=== PATIENT | male | born 1970 | race Caucasian/White ===

== ENCOUNTER 2018-10-13 18:33 | Inpatient (IN) | payer BC, OTHER ==
[~2018-10-13] VITALS: Ht 170.2 cm; Wt 81.6 kg
[~2018-10-13 18:33] MED LIST: ACET-2605 PO; AMLO5TAB9 PO; CHOL100062 PO; CLON0.1T PO; EMTR1TAB6 PO; FERR325T24 PO; FOLI1TAB16 PO; IBUP-1957 PO; LISI10TA5 PO; MULT-465 PO; OMEP40CA37 PO; SUCR1ORA4 PO; THIA100T74 PO; TRAZ-214 PO
--- NOTE | 2018-10-13 19:15 | NUR ---
Pre-Admission Assessment Pt is 48 year old male seen in [facility] intake. Pt is seen sitting in chair. Pt reports feeling anxious and restless, skin is noted to be flushed/clammy. Pt is cooperative, alert/oriented x4 and responds to questions appropriately. However, pt appears to be emotional when responding to pre-assessment questions. Pt begins to cry when reporting why he presents to [facility]. Pt reports he presents to [facility] due to ETOH withdrawal. He stated he was at [facility] around 08/2018, discharged to [facility] which he stayed for 2 weeks then relapsed as soon as he left. Vital signs taken, rules of the unit explained such as vital signs Q4H, wasting of controlled substances, kitchen access, and smoking patio privileges. Will continue with admission process upon arrival on unit.
[2018-10-13] MEDS ORDERED: diphenhydrAMINE 50 MG CAPSULE PO PRN (19:45)
[2018-10-13] MEDS ORDERED: LOPERAMIDE HCL 2 MG CAPSULE PO PRN ×2 (19:45)
[2018-10-13] MEDS ORDERED: HYDROXYZINE PAMOATE 25 MG CAPSULE PO PRN (19:45)
[2018-10-13] MEDS ORDERED: ONDANSETRON ODT 4 MG TAB.RAPDIS SL PRN (19:45)
[2018-10-13] MEDS ORDERED: THIAMINE HCL 200 MG/2 ML VIAL IM ONE (19:45)
[2018-10-13] MEDS ORDERED: MAGNESIUM HYDROXIDE 30 ML LIQUID UDC PO PRN (19:45)
[2018-10-13] MEDS ORDERED: CLONIDINE HCL 0.1 MG TABLET PO PRN (19:45)
[2018-10-13] MEDS ORDERED: LORAZEPAM 1 MG TABLET PO PRN ×2 (19:45)
[2018-10-13] MEDS ORDERED: ONDANSETRON 4 MG/2 ML VIAL IM PRN (19:45)
[2018-10-13] MEDS ORDERED: SRC ALCOHOL WITHDRAWAL ADMITTING PROTOCOL XX PRN (19:45)
[2018-10-13] MEDS ORDERED: MIRALAX 17 GM POWD.PACK PO PRN (19:45)
[2018-10-13] MEDS ORDERED: LORAZEPAM 2 MG/1 ML VIAL IM PRN (19:45)
[2018-10-13] MEDS ORDERED: IBUPROFEN 600 MG TABLET PO PRN (19:45)
[2018-10-13] MEDS ORDERED: MAG HYDROX/AL HYDROX/SIMETH 30 ML LIQUID UDC PO PRN (19:45)
[2018-10-13 20:00] VITALS: BP 125/81
--- NOTE | 2018-10-13 20:00 | NUR ---
JAIWA deferred pt is intoxicated at this time, GREG deferred
[2018-10-13] MEDS ORDERED: VARE1TAB21 PO (20:18)
[2018-10-13] MEDS: ACETAMINOPHEN 325 MG TABLET PO PRN (20:38)
--- NOTE | 2018-10-13 20:38 | NUR ---
PRN Tylenol Pt c/o right rib pain 07/12. Medication given per order. Will monitor effect.
--- NOTE | 2018-10-13 21:00 | NUR ---
Admission Note Admitting a 48 year old male to [facility] for medically supervised withdrawal from ETOH. Pt arrived to unit at 1927 escorted by a male SENIOR ACCOUNT CLERK. Pt is awake, oriented, and intoxicated. CIWA deferred. Avoiding eye contact, withdrawn and guarded. Pt ambulates with steady gait. Pt guarding ribs on right side r/t recent fall. Pt is cooperative and compliant. Skin and cavity check completed. Pt oriented to unit, staff, and equipment which he verbalizes understanding. Given food and fluids. VSS BP 138/73, HR 99, RR 16, T 98.6, O2 Sat 97% RA. Pt having difficulty providing complete and consistent history. Pt is easily distracted and emotional upon questioning. Substance Use History: 1. ETOH (wine) Pt first started drinking at the age of 18, currently drinking 3750 ml-4500 ml daily for the past 2 months, Last drink was 3000 ml-3750 ml 10/13/18. 2. Cocaine -Pt first started using via insufflation at the age of 20, Pt states, " I rarely use it, maybe a few times a year", Last use was 9-10 weeks ago.. Withdrawal: Pt states, "I get anxious, sweaty, shaky, emotional, and I cant sleep Consequences of substance abuse: Pt denies history of seizure, withdrawal induced delirium, withdrawal induced cardiac complications, nor overdose. Pt states, now I blackout all the time. Even if I only have a couple of drinks. I need to learn how to drink. Since I had my surgery I have had a problem drinking, but I dont have a drinking problem, Does that make sense to you? I need to learn how my body handles alcohol so I dont have to keep coming here. Pt also stated, no one knows I am here. Only a couple people know I had surgery. I would rather people think I have a drinking problem than tell them i had surgery. Medical/Psychiatric Condition: PCP is Dr. Hickman History of Hypertension, GERD, and Bariatric surgery in 2016 Pt denies history of SI/SA or 5150. He denies any Psychiatric diagnosis. He does see a therapist at Dr. Sofia office. Pt stated, I dont feel comfortable there, I feel like he is coming on to me. Treatment History: Pt states, "I have been to about 5 treatment places in the past. The ones in [place] and [place] were dirty so I left right away, the one in [place] was being shut down when I got there, and I was here ([facility]) 08/20. I did go to outpatient at [facility] Motivation: When asked why he uses pt states, because it is my social life, Everything is centered around alcohol. When asked why does he want to get sober he states, honestly, I don't know. I don't have a drinking problem. Since my surgery I can't drink anymore. I blackout and pass out on only a couple drinks now. I need to learn how my body can take alcohol so I don't have to come here anymore. I have a problem with the word sober. I really dont think I have a drinking problem. When asked about his support he states, no one knows I am here. Only a couple people know I had surgery. I would rather people think I have a drinking problem than tell them I had surgery. When asked about consequences pt states, I haven't had any consequences except now I blackout and I keep ending up here. I have never really tried to stay sober because everybody drinks and everything I do is centered around alcohol. I just need to figure out the right way Pt made aware of therapeutic and treatment plan. Pt verbalizes understanding and agrees to comply. Pt in room resting. Bed low, side rails up x 2, and call griffith in reach. Will continue to monitor.
[2018-10-13 21:03] LABS: BASOPHILS % (AUTO) 0.6 % (0.0-2.0); EOSINOPHILS # (AUTO) 0.1 K/uL (0.0-0.7); EOSINOPHILS % (AUTO) 1.1 % (0.0-7.0); HEMATOCRIT 43.2 % (36.7-47.1); HEMOGLOBIN 15.3 g/dL (12.5-16.3); LYMPHOCYTES # (AUTO) 3.2 K/uL (20.0-40.0); MEAN CORPUSCULAR HEMOGLOBIN 34.7 uug (23.8-33.4); MEAN CORPUSCULAR HGB CONC 35 g/dL (32.5-36.3); MEAN CORPUSCULAR VOLUME 98.3 fL (73.0-96.2); MONOCYTES # (AUTO) 0.3 K/uL (2.0-10.0); MONOCYTES % (AUTO) 3.5 % (0.0-11.0); NEUTROPHILS # (AUTO) 3.6 K/uL (1.8-8.9); NEUTROPHILS % (AUTO) 49.8 % (38.5-71.5); PLATELET COUNT (AUTO) 243 K/uL (152-348); WHITE BLOOD COUNT (AUTO) 7.2 K/uL (3.6-10.2)
[2018-10-13 21:31] LABS: BILIRUBIN,TOTAL 0.5 mg/dL (0.2-1.0); CREATININE 0.9 mg/dL (0.6-1.3); MAGNESIUM 2.4 mg/dL (1.8-2.4); TOTAL PROTEIN, SERUM 7.6 g/dL (6.4-8.2)
--- NOTE | 2018-10-13 21:38 | NUR ---
Reassess PRN Tylenol Effective per pt. Pain 5/10 at this time. Pt states, It hurts when I take a deep breath or move. Requested to go smoke at this time. Encouraged to not smoke. Will continue to monitor.
[2018-10-13 22:09] LABS: THYROID STIMULATING HORMONE 0.46 mIU/mL (0.358-3.740)
[2018-10-13 22:11] LABS: *AMPHETAMINE, URINE NEGATIVE (NEGATIVE); *BARBITURATE, URINE NEGATIVE (NEGATIVE); *CANNABINOID, URINE NEGATIVE (NEGATIVE); *COCCAINE, URINE NEGATIVE (NEGATIVE); *OPIATE, URINE NEGATIVE (NEGATIVE); *PHENCYCLIDINE SCREEN,URINE NEGATIVE (NEGATIVE)
--- NOTE | 2018-10-14 | NUR ---
CIWA deferred/Vitals refused Pt resting with eyes closed. Respirations even and unlabored. Bed low, side rails up x 2, and call griffith in reach. CIWA deferred and pt refused vitals. Continue to monitor.
--- NOTE | 2018-10-14 03:46 | NUR ---
PRN Zofran Pt c/o nausea. Medication given per order, will monitor effect.
[2018-10-14 04:00] VITALS: BP 129/88
--- NOTE | 2018-10-14 04:00 | NUR ---
CIWA 4 Pt c/o nausea, mild tremor felt, skin moist, mild anxiety, and emotional.
--- NOTE | 2018-10-14 04:46 | NUR ---
Reassess PRN Zofran Medication effective. Pt resting with eyes closed. Respirations are even and unlabored. Continue to monitor.
--- NOTE | 2018-10-14 06:34 | NUR ---
END OF SHIFT Endorsing 48 year old male patient admitted to [facility] on 10/13/18 for medically supervised ETOH withdrawal. Pt not currently on a taper, but has PRN medications available for s/s of withdrawal. Last CIWA 4 @0400. Pt received PRN Tylenol and Zofran on elementary assistant principal. Pt resting in bed with eyes closed. Respirations are even and unlabored. Bed is low, side rails up x 2, and call griffith in reach. PO intake 1480 ml, Voided x 2, BM x 0, and slept 5 hours.
--- NOTE | 2018-10-14 07:30 | NUR ---
Start of Shift Note: Report received from rn shift mgr nurse. Last CIWA 4 and pt slept for 5 hours. Upon start of shift, pt was sitting on his chair with the lights off. Pt stated he feels very anxious. Pt appears disheveled, unkempt, and disorganized. Pt had no other complaints other than anxiety. Plan of care explained to pt. Pt verbalized understanding. Pt to be seen by MD today. Bed in lowest position. Side rails up x2. Call light functioning and within reach. All needs attended and met. Will continue to monitor.
[2018-10-14 08:00] VITALS: BP 145/101
[2018-10-14] MEDS: FOLIC ACID 1 MG TABLET PO SCH (08:22)
[2018-10-14] MEDS: THIAMINE HCL 100 MG TABLET PO SCH (08:22)
[2018-10-14] MEDS: MULTIVITAMINS,THERAPEUTIC TABLET PO SCH (08:22)
[2018-10-14] MEDS ORDERED: TUBERCULIN,PURIF.PROT.DERIV. 5 TU/0.1 ML TEST ID ONE (09:00)
--- NOTE | 2018-10-14 09:39 | NUR ---
Therapist prompted client to attend group therapy.
[2018-10-14 12:11] VITALS: BP 141/100
[2018-10-14] MEDS ORDERED: PATIENT MAY USE OWN MED- MD OK PO SCH (13:15)
[2018-10-14] MEDS ORDERED: FOLIC ACID 1 MG TABLET PO SCH (13:15)
[2018-10-14] MEDS ORDERED: THIAMINE HCL 100 MG TABLET PO SCH (13:15)
[2018-10-14] MEDS ORDERED: 3 DAY TAPER OF LORAZEPAM -SERENITY PROTOCOL PO PRN (13:30)
[2018-10-14] MEDS: FERROUS SULFATE 325 MG TABEC PO SCH (14:11)
[2018-10-14] MEDS: CHOLECALCIFEROL 1,000 UNIT TABLET PO SCH (14:11)
[2018-10-14] MEDS: AMLODIPINE 5 MG TABLET PO SCH (14:12)
[2018-10-14] MEDS: LISINOPRIL 10 MG TABLET PO SCH (14:12)
[2018-10-14] MEDS: TRUVADA PO SCH (15:04)
[2018-10-14] MEDS: LORAZEPAM 1 MG TABLET PO SCH ×2 (15:04→20:58)
[2018-10-14] MEDS: ACETAMINOPHEN 325 MG TABLET PO PRN ×2 (15:06→23:16)
--- NOTE | 2018-10-14 15:06 | NUR ---
Tylenol PRN: Pt noted with R rib pain r/t fall. Pt noted with 7/10 pain. Tylenol PRN given as ordered.
[2018-10-14 16:00] VITALS: BP 135/88
--- NOTE | 2018-10-14 16:00 | NUR ---
Tylenol Reassessment: Pt in bed with eyes closed. Respirations even and unlabored. No facial grimacing noted. Unable to assess effectiveness at this time.
--- NOTE | 2018-10-14 19:05 | NUR ---
START OF SHIFT Received 48 year old male patient admitted to [facility] on 10/13/18 for medically supervised ETOH withdrawal. Pt started a 3 day Ativan taper today 10/14/18 and is tolerating well. Last CIWA 10 @1600. Pt received PRN Tylenol on day shift and current c/o pain 02/09. . Pt isolating in dark room. Pt is withdrawn, anxious, agitated, visible tremors and clammy. Encouraged pt to participate in group. Declines at this time. Bed is low, side rails up x 2, and call griffith in reach. Will continue to monitor.
--- NOTE | 2018-10-14 19:05 | NUR ---
End of Shift Note: Pt currently in group activity. Tylenol PRN given as ordered for R rib pain r/t fall. Last CIWA 10. Pt is currently on Ativan taper to manage withdrawal symptoms. All needs attended and met. Will endorse to retail shift leader nurse.
[2018-10-14 20:00] VITALS: BP 120/85
--- NOTE | 2018-10-14 20:00 | NUR ---
CIWA 12 Pt is withdrawn, anxious, agitated, visible tremors and clammy.
[2018-10-14] MEDS: TRAZODONE 100 MG TABLET PO PRN (23:16)
--- NOTE | 2018-10-14 23:16 | NUR ---
PRN Tylenol/Trazodone CIWA 12 Pt requesting something to sleep and for right rib pain 02/09. Medications given per order. Wiill monitor effect. Pt continues with anxiety, agitation, tremors, restless and sweating, CIWA 12
[2018-10-15] VITALS: BP 126/84
--- NOTE | 2018-10-15 00:16 | NUR ---
Reassess PRN Tylenol/Trazodone Medication effective. Pt resting with eyes closed. Respirations are even and unlabored. Continue to monitor.
--- NOTE | 2018-10-15 04:00 | NUR ---
CIWA Deferred and Vitals refused Pt resting with eyes closed. Respirations are even and unlabored. Continue to monitor.
--- NOTE | 2018-10-15 06:40 | NUR ---
END OF SHIFT Endorsing 48 year old male patient admitted to [facility] on 10/13/18 for medically supervised ETOH withdrawal. Pt currently on day 2 of a 3 day Ativan taper, which he is tolerating well. Last CIWA 12 @1117. Pt received PRN Tylenol and Trazodone on night nurse. Pt resting in bed with eyes closed. Respirations are even and unlabored. Bed is low, side rails up x 2, and call griffith in reach. PO intake 1075 ml, Voided x 3 BM x 0 and slept 8 hours.
[2018-10-15] MEDS: PANTOPRAZOLE SODIUM 40 MG TABLET.DR PO SCH (06:48)
--- NOTE | 2018-10-15 07:40 | NUR ---
START OF SHIFT NOTE Received report from night nurse, 48 year old male admitted for ETOH withdrawal. Patient continues with 3 days Ativan taper tolerating well. Per endorsement patient received PRN Tylenol, Trazodone effective per night nurse, slept for 8 hours, last CI-. Received patient alert awake oriented x4 watching TV. Patient presented with sad facial expressions, unkempt room, empty bottles on the floor, sweats, fatigue. Educated patient regarding plan of the day and medications regimen. Patient verbalized understanding. All safety measures in place. Will cont with plan of care.
[2018-10-15 08:00] VITALS: BP 118/84
[2018-10-15] MEDS: FERROUS SULFATE 325 MG TABEC PO SCH (08:21)
[2018-10-15] MEDS: LORAZEPAM 1 MG TABLET PO SCH ×2 (08:21→21:00)
[2018-10-15] MEDS: FOLIC ACID 1 MG TABLET PO SCH (08:21)
[2018-10-15] MEDS: THIAMINE HCL 100 MG TABLET PO SCH (08:21)
[2018-10-15] MEDS: CHOLECALCIFEROL 1,000 UNIT TABLET PO SCH (08:21)
[2018-10-15] MEDS: MULTIVITAMINS,THERAPEUTIC TABLET PO SCH (08:21)
[2018-10-15] MEDS: AMLODIPINE 5 MG TABLET PO SCH (08:22)
[2018-10-15] MEDS: LISINOPRIL 10 MG TABLET PO SCH (08:22)
[2018-10-15] MEDS: TRUVADA PO SCH (08:26)
[2018-10-15 12:00] VITALS: BP 128/92
--- NOTE | 2018-10-15 12:38 | NUR ---
Therapist prompted client to attend all daily group therapy sessions.
[2018-10-15 15:07] LABS: HEPATITIS B SURFACE AG Negative (Negative)
[2018-10-15 16:00] VITALS: BP 126/85
--- NOTE | 2018-10-15 19:05 | NUR ---
END OF SHIFT NOTE Gave report to night nurse, 48 year old male admitted for ETOH withdrawal. Patient completed his Ativan taper tolerated well. Pt scheduled to be discharged tomorrow. Discharged assessment completed. Pt reported happy and little anxious about discharge, educate the pt on relaxation techniques, pt verbalized understanding. Pt cooperative, friendly, no unusual mood behavior noted during this shift. Pt compliant with plan of care. Pt denies any pain or discomfort. No episode of N/V noted during this shift. Pt denies any SI/HI. Vital signs WNL. Pt attended all group activities. No PRN medication was given during this shift. Last CIWA score was 8 at 1600. Pt endorsed to night nurse in stable condition. All information discussed.
--- NOTE | 2018-10-15 19:05 | NUR ---
END OF SHIFT Received 48 year old male patient admitted to [facility] on 10/13/18 for medically supervised ETOH withdrawal. Pt currently on day 2 of a 3 day Ativan taper, which he is tolerating well. Last CIWA 8 @1600. Pt received did not receive any PRN medications on day shift. Pt awake, alert, and participating in group. Bed is low, side rails up x 2, and call griffith in reach. Will continue to monitor. Addendum: 10/15/18 at 2107 by DAVIDSON MURRAY RN [id number] START OF SHIFT NOTE
[2018-10-15 20:00] VITALS: BP 138/78
--- NOTE | 2018-10-15 20:00 | NUR ---
JAIWA 8 Pt is anxious, shaky, and clammy. Pt states, " I feel so much better and I'm ready to go home".
--- NOTE | 2018-10-15 21:00 | NUR ---
Refused 2100 Ativan Pt is scheduled for DC in am 10/16/18. Medication refused.
[2018-10-15] MEDS: TRAZODONE 100 MG TABLET PO PRN (22:37)
--- NOTE | 2018-10-15 22:37 | NUR ---
PRN Trazodone Pt requested Trazodone for sleep. Given per order. Will monitor effect.
--- NOTE | 2018-10-15 23:22 | NUR ---
Reassess PRN Trazodone Medication effective. Pt resting with eyes closed. Respirations are even and unlabored. Will continue to monitor.
--- NOTE | 2018-10-16 | NUR ---
CIWA Deferred/ Vitals refused Pt resting in bed with eyes closed. Respirations are even and unlabored. Bed is low, side rails up x 2, and call griffith in reach. Continue to monitor.
[2018-10-16] MEDS: PANTOPRAZOLE SODIUM 40 MG TABLET.DR PO SCH (06:39)
--- NOTE | 2018-10-16 06:45 | NUR ---
END OF SHIFT Endorsing 48 year old male patient admitted to [facility] on 10/13/18 for medically supervised ETOH withdrawal. Pt has an active Ativan taper, which he refused the 2100 dose. Pt has a discharge order for this am 10/16/18. Last CIWA 8 @1999. Pt received PRN Trazodone on assistant casino shift manager. Pt resting in bed with eyes closed. Respirations are even and unlabored. Bed is low, side rails up x 2, and call griffith in reach. PO intake 1750 ml, voided x 1, BM x 0 , and slept 7 hours.
--- NOTE | 2018-10-16 07:16 | NUR ---
START OF SHIFT NOTE Received report from night nurse, 48 year old male admitted for ETOH withdrawal. Patient completed his 3 days Ativan taper tolerated well. Per endorsement patient received PRN Trazodone effective per night nurse, slept for 7 hours, last CIWA-8. Received patient alert awake oriented x4 patient scheduled for discharge today, patient reported anxious about discharge, Educated patient on relaxation techniques, patient verbalized understanding. All safety measures in place. Will cont with plan of care.
[2018-10-16 08:00] VITALS: BP 137/95
[2018-10-16] MEDS: CHOLECALCIFEROL 1,000 UNIT TABLET PO SCH (08:28)
[2018-10-16] MEDS: AMLODIPINE 5 MG TABLET PO SCH (08:28)
[2018-10-16] MEDS: MULTIVITAMINS,THERAPEUTIC TABLET PO SCH (08:28)
[2018-10-16 08:29] VITALS: BP 137/95
[2018-10-16] MEDS: THIAMINE HCL 100 MG TABLET PO SCH (08:29)
[2018-10-16] MEDS: TRUVADA PO SCH (08:29)
[2018-10-16] MEDS: LISINOPRIL 10 MG TABLET PO SCH (08:29)
[2018-10-16] MEDS: FOLIC ACID 1 MG TABLET PO SCH (08:29)
[2018-10-16] MEDS: FERROUS SULFATE 325 MG TABEC PO SCH (08:29)
[2018-10-16] MEDS ORDERED: LORAZEPAM 1 MG TABLET PO SCH (09:00)
--- NOTE | 2018-10-16 09:38 | NUR ---
DISCHARGE NOTE Patient has been discharge from [facility] in stable condition. Vital signs WNL. Patient denies any SI/HI. Skin intact warm and dry to touch. All paper work has been completed signed and dated. Patient left with all of his belongings, medications. Patient has been discharge from [facility] on 10/16/18 at 0938. has been notified.
== END 2018-10-16 09:38 | disposition other institution (70) | DRG 895 ==
LOC: SRC 18:33
PROVIDERS: ADMIT Family Medicine Addiction Medicine; ATTEND Family Medicine Addiction Medicine
PROC: HZ2ZZZZ Detoxification Services for Substance Abuse Treatment (ICD-10-PCS; principal; 2018-10-13)
PROC: HZ41ZZZ Group Counseling for Substance Abuse Treatment, Behavioral (ICD-10-PCS; 2018-10-14)
PROC: HZ31ZZZ Individual Counseling for Substance Abuse Treatment, Behavioral (ICD-10-PCS; 2018-10-15)
DX: F10.230 Alcohol dependence with withdrawal, uncomplicated (principal); F14.10 Cocaine abuse, uncomplicated; Y90.8 Blood alcohol level of 240 mg/100 ml or more; I10 Essential (primary) hypertension; K21.9 Gastro-esophageal reflux disease without esophagitis; Z98.84 Bariatric surgery status; Z79.899 Other long term (current) drug therapy; F41.9 Anxiety disorder, unspecified
CPT/HCPCS: 36415; 70030-TC; 80307; 83690; 83735; 84443; 85025; 86592; 86705; 86803; 87340; 87806; G0480; Q0162